=== PATIENT | female | born 1950 | race Caucasian/White ===

== ENCOUNTER 2019-07-02 10:22 | Inpatient (IN) ==
[2019-07-02] MEDS ORDERED: Ibuprofen 800 MG TABLET PO PRN (12:19)
[2019-07-03] MEDS ORDERED: Furosemide 40 MG TABLET PO SCH (09:00)
[2019-07-03] MEDS ORDERED: amLODIPine 5 MG TABLET PO SCH (09:00)
[2019-07-03] MEDS ORDERED: hydroCHLOROthiazide 25 MG TABLET PO SCH (09:00)
[2019-07-03] MEDS: levoFLOXacin 500 MG TABLET PO SCH (09:14)
[2019-07-03] MEDS: Magnesium Oxide 400 MG TABLET PO SCH (09:14)
[2019-07-03] MEDS: Cholecalciferol (D-3) 1,000 UNIT (25MCG) TABLET PO SCH (09:14)
[2019-07-03] MEDS: Aspirin Enteric Coated 81 MG Tablet PO SCH (09:15)
[2019-07-03] MEDS: Psyllium 1 PACKET POWD.PACK PO SCH (09:23)
--- NOTE | 2019-07-03 16:18 | Internal Med History&Physical ---
Date of Encounter: 07/03/19 Time of Encounter: 15:30 Assessment and Plan (1) Perforated sigmoid colon Current visit: No Status: Acute Status post sigmoid resection with colostomy development January 2019 with colostomy takedown June 2019. Follow up as per surgeon orders. (2) HTN (hypertension) Current visit: No Status: Chronic Monitor blood pressure. Qualifiers: Hypertension type: essential hypertension Qualified Code(s): I10 - Essential (primary) hypertension (3) Weakness Current visit: No Status: Acute PT and OT evaluations have been ordered. (4) Diabetes Current visit: No Status: Chronic Hemoglobin A1c was 7.0% on 09/09/2018. Recheck in a.m. Continue Accu-Cheks with SSI. Qualifiers: Diabetes mellitus type: type 2 Diabetes mellitus supervisor long goods insulin use: with alf use Diabetes mellitus complication status: without complication Qualified Code(s): E11.9 - Type 2 diabetes mellitus without complications; Z79.4 - termite treater (current) use of insulin (5) Pneumonia Current visit: No Status: Acute Continue Levaquin through 07/07/2019. Lactobacillus will be added. Qualifiers: Pneumonia type: due to unspecified organism Laterality: left Lung location: lower lobe of lung Qualified Code(s): J18.1 - Lobar pneumonia, unspecified organism (6) Anemia Current visit: Yes Status: Acute Anemia testing will be done in a.m. Qualifiers: Anemia type: unspecified type Qualified Code(s): D64.9 - Anemia, unspecified (7) Low TSH level Current visit: Yes Status: Acute TSH was suppressed at 0.128 on 02/18/2018. Recheck in a.m. (8) Hypokalemia Current visit: No Status: Acute Supplemental potassium has been ordered. Recheck in a.m. Internal Medicine - H&P: HPI Chief complaint: Postop recovery Admitted From: Hospital to Hospital Transfer Plans for Post Hospital Care: Home History of present illness: Ms. Vallecillo is a 69 year old female who was discharged to [facility] swing bed following a June 24 hospitalization for colostomy takedown and bilateral ureteral stent placement. Her postop course was complicated by pneumonia and UTI. She was transitioned from IV Zosyn to oral Levaquin and was discharged [facility] swing bed for rehabilitation therapy prior to returning to independent living at home. She had had sigmoid colon resection 01/10/2019 for perforated sigmoid diverticulitis. The primary anastomosis failed and she underwent exploratory lap with colostomy development 01/14/2019. She states colostomy takedown surgery has been uncomplicated and she is having normal BM per rectum. She has noticed occasional blood streaks in stool but was told this was not unexpected. She denies disorders of her liver gallbladder or exocrine pancreas. Past Med Surg Social Fam HX - Past Medical History Medical history: hyperlipidemia, hypertension Additional medical history: fluid retention. Diverticulitis with perforation Psychiatric history: depression - Past Surgical History Surgical History: cholecystectomy, colectomy, colostomy, ELISABETH/BSO Additional surgical history: polyps and gallbladder removal, partial colon removal - Social History Smoking Status: Never smoker Smokeless Tobacco Status: No Alcohol use: none Drug use: none - Family History Father Living Status: Hx Family Cardiac Disorders: Yes ([place]) Mother Adopted: No Living Status: Hx Family Cardiac Disorders: Yes (mother CHF) Hx Family Respiratory Disorders: No Hx Family Cancer: Yes (breast ca/sister) Hx Family GI Disorders: No Hx Family Endocrine Disorder: Yes (mother father DM) Hx Family Neuromuscular Disorders: No Hx Family Neurologic Disorders: No Hx Family HEENT Disorders: No Hx Family Autoimmune Disorders: No Internal Medicine - H&P: Meds Cholecalciferol (Vitamin D3) [Vitamin D3] 2,000 unit PO DAILY 01/24/17 [History] Furosemide [Lasix] 40 mg PO QAM 01/24/17 [History] Psyllium Husk [Metamucil] 0.4 gm PO DAILY 07/15/18 [History] Atorvastatin [Lipitor] 40 mg PO HS 30 Days #30 tablet 07/17/18 [Rx] hydroCHLOROthiazide [Hydrochlorothiazide] 12.5 mg PO DAILY 30 Days #30 tablet 07/17/18 [Rx] Amlodipine Besylate 10 mg PO DAILY 01/11/19 [History] Aspirin [Lo-Dose Aspirin EC] 81 mg PO DAILY 01/11/19 [History] Metoprolol Tartrate 50 mg PO DAILY 01/11/19 [History] Potassium Chloride [K-Tab ER] 20 meq PO BID 01/11/19 [History] Magnesium 250 mg PO Q48H 06/24/19 [History] Acetaminophen [Tylenol] 650 mg PO Q6HR PRN tablet 07/02/19 [Rx] Docusate [Colace] 100 mg PO BID capsule 07/02/19 [Rx] Ibuprofen [Motrin] 800 mg PO Q8HR PRN tablet 07/02/19 [Rx] Polyethylene Glycol 3350 [MiraLAX] 17 gm PO DAILY powd.pack 07/02/19 [Rx] levoFLOXacin [Levaquin] 750 mg PO DAILY 5 Days tablet 07/02/19 [Rx] Allergy/AdvReac Type Severity Reaction Status Date / Time No Known Allergies Allergy Verified 06/08/19 10:31 All Systems PM: A 10-system review of systems was performed and is negative for pertinent findings except as documented above in the HPI. Review of systems: Gen.: Her weight has decreased from 118.8 kg on 01/21/2019 to 97.5 kg on admission now. Cardiovascular: She has history of hypertension but denies [place] heart failure angina DVT or pulmonary embolus Respiratory: She is a lifelong nonsmoker and denies chronic lung disease. GI: As per history of present illness : She denies hematuria dysuria or kidney stones Neurologic: She denies large distribution strokes or seizures. Endocrine: She has been told she is borderline diabetic. She denies known thyroid disease. TSH was suppressed at 0.128 on 02/18/2018. She has history of hyperlipidemia. Hematology/oncology: She was unaware she had anemia. She denies internal malignancies or other blood disorders. Psychiatric: She has depression but denies anxiety or other mental health issues [place] skeletal: She has DJD but denies gout or other bone joint or muscle disorders. - Constitutional Vitals: Temp Pulse Resp BP Pulse Ox 98.0 F 89 16 119/65 94 07/03/19 15:05 07/03/19 15:05 07/03/19 15:05 07/03/19 15:05 07/03/19 15:05 Exam: Gen.: She is a well-developed well-nourished female resting comfortably on the side of bed who appears in no acute distress HEENT: Head is atraumatic and normocephalic. Eyes: EOMI. There is no scleral icterus. Mouth: Mucosa is moist. Neck: Supple and nontender. There is no thyromegaly or adenopathy noted. Heart: Regular without murmurs gallops or ectopics Lungs: No wheezes or crackles are heard. Abdomen: Soft and nontender. No masses or guarding are noted. Extremities: She has trace edema of the lower legs and dorsum of the feet bilaterally. Dorsalis pedis and posterior tibial pulses are trace to 1+ palpable. Her feet are warm to touch. She has minimal DJD changes of her hands. Neurologic: Mental status: She is talkative and a good historian. Cranial nerves: Smile is symmetric. Forehead wrinkles bilaterally. Tongue protrudes midline. EOMI. Motor: There is no pronator drift. Cerebellar: Finger to nose is intact bilaterally. Skin: Warm and dry
[2019-07-03] MEDS: Lactobacillus 1 EACH CAP.SPRINK PO SCH (21:54)
[2019-07-04 07:31] LABS: Basophils # 0.1 K/mcL (0.0-0.2); Basophils % 0.5 %; Eosinophils # 0.7 K/mcL (0.0-0.6); Eosinophils % 6.3 %; Hematocrit 32.7 % (35.3-44.9); Immature Granulocytes % 1.7 % (0-4); Lymphocytes # 2.3 K/mcL (0.6-4.6); Mean Corpuscular HGB Conc 33.6 g/dL (31.6-35.5); Mean Corpuscular Hemoglobin 28.4 pg (28.0-33.3); Mean Corpuscular Volume 84.3 fL (83.0-100.0); Mean Platelet Volume 10.2 fL (9.4-12.4); Monocytes # 1.3 K/mcL (0.0-1.3); Monocytes % 12.2 %; Neutrophils # 6.1 K/mcL (1.6-8.9); Platelet Count 365 K/mcL (140-400); Red Blood Count 3.88 M/mcL (3.82-4.97); Red Cell Distribution Width 15.2 % (11.5-14.5); Segmented Neutrophils % 57.3 %; White Blood Count 10.6 K/mcL (4.3-11.1)
[2019-07-04 07:55] LABS: Alanine Aminotransferase 13 Units/L (7-52); Albumin/Globulin Ratio 1.1 (1.1-2.2); Alkaline Phosphatase 59 Units/L (34-104); Aspartate Amino Transferase 19 Units/L (13-39); BUN/Creatinine Ratio 13 (6-26); Blood Urea Nitrogen 9 mg/dL (8-23); Calcium 8.4 mg/dL (8.6-10.3); Carbon Dioxide 27 mEq/L (23-29); Chloride 103 mEq/L (98-107); Globulin 2.7 g/dL (2.4-3.5); Glucose 107 mg/dL (70-105); Osmolality,Calculated 283 (280-300); Potassium 3.6 mEq/L (3.5-5.1); Sodium 137 mEq/L (136-145); Total Protein 5.7 g/dL (6.4-8.9); eGFR For African Americans > 60 (> 60); eGFR For Non-African Americans > 60 (> 60)
[2019-07-04] MEDS: Lactobacillus 1 EACH CAP.SPRINK PO SCH ×2 (09:07→20:16)
[2019-07-04] MEDS: levoFLOXacin 500 MG TABLET PO SCH (09:07)
[2019-07-04] MEDS: Cholecalciferol (D-3) 1,000 UNIT (25MCG) TABLET PO SCH (09:08)
[2019-07-04] MEDS: Aspirin Enteric Coated 81 MG Tablet PO SCH (09:08)
[2019-07-04] MEDS: Psyllium 1 PACKET POWD.PACK PO SCH (09:11)
[2019-07-04 09:30] LABS: % Iron Saturation 14 % (15-50); Iron 37 mcg/dL (50-170); Transferrin 185 mg/dL (203-362)
[2019-07-04 09:47] LABS: Estimated Average Glucose 128 mg/dl
[2019-07-04 09:49] LABS: Ferritin 191 ng/mL (10-120)
[2019-07-04 09:54] LABS: Folate 15.4 ng/mL (3.0-16.0)
--- NOTE | 2019-07-04 15:39 | Internal Med Progress Note ---
Date of Encounter: 07/04/19 Time of Encounter: 15:30 - Assessment and plan (1) Perforated sigmoid colon Current Visit: No Status: Acute Assessment and plan: July 04. Status post sigmoid resection with colostomy development January 2019 with colostomy takedown June 2019. Follow up as per surgeon orders. (2) HTN (hypertension) Current Visit: No Status: Chronic Assessment and plan: July 04. Remain off Lasix, HCTZ, and amlodipine. Monitor blood pressure. Qualifiers: Hypertension type: essential hypertension Qualified Code(s): I10 - Essential (primary) hypertension (3) Weakness Current Visit: No Status: Acute Assessment and plan: July 04. Continue PT/OT intervention. (4) Diabetes Current Visit: No Status: Chronic Assessment and plan: July 04. Hemoglobin A1c acceptable at 6.1%. Qualifiers: Diabetes mellitus type: type 2 Diabetes mellitus custodial insulin use: with long term care administrator use Diabetes mellitus complication status: without complication Qualified Code(s): E11.9 - Type 2 diabetes mellitus without complications; Z79.4 - terminal make up operator (current) use of insulin (5) Pneumonia Current Visit: No Status: Acute Assessment and plan: July 04. Continue Levaquin and lactobacillus through 07/07/2019. Qualifiers: Pneumonia type: due to unspecified organism Laterality: left Lung location: lower lobe of lung Qualified Code(s): J18.1 - Lobar pneumonia, unspecified organism (6) Anemia Current Visit: Yes Status: Acute Assessment and plan: July 04. Anemia testing showed iron 37, transferrin saturation 14%, transferrin 185, ferritin 191, B12 343, and folate 15.4. Hemoglobin improved to 11.0. Continue to monitor periodically. Qualifiers: Anemia type: unspecified type Qualified Code(s): D64.9 - Anemia, unspecified (7) Low TSH level Current Visit: Yes Status: Acute Assessment and plan: July 04. TSH WNL at 1.050. (8) Hypokalemia Current Visit: No Status: Acute Assessment and plan: July 04. Potassium WNL at 3.6. Continue to monitor. - Subjective Interval history: July 04. She has no new complaints. - Constitutional Vitals: Temp Pulse Resp BP Pulse Ox 97.5 F L 86 15 107/71 97 07/04/19 06:34 07/04/19 06:34 07/04/19 06:34 07/04/19 06:34 07/04/19 06:34 Exam: She is resting comfortably in bed and appears in no acute distress. Her affect is bright and cheerful. I reviewed her medications and lab results. Internal Medicine: Result - Labs CBC & Chem 7: 07/04/19 06:50 07/04/19 06:50 Labs: Short CBC 07/04/19 Range/Units 06:50 WBC 10.6 (4.3-11.1) K/mcL Hgb 11.0 L (11.5-15.4) g/dL Hct 32.7 L (35.3-44.9) % Plt Count 365 (140-400) K/mcL Neutrophils # 6.1 (1.6-8.9) K/mcL BMP 07/04/19 06:50 Sodium 137 Potassium 3.6 Chloride 103 Carbon Dioxide 27 BUN 9 Creatinine 0.69 Glucose 107 H Calcium 8.4 L Liver Function 07/04/19 Range/Units 06:50 Total Bilirubin 1.0 (0.3-1.0) mg/dL AST 19 (13-39) Units/L ALT 13 (7-52) Units/L Alkaline Phosphatase 59 (34-104) Units/L Albumin 3.0 L (3.5-5.7) g/dL Consult Discharge Plan - Plan Referrals: Rey Bowman Jr, MD [Primary Care Provider] - 1 week
[2019-07-05] MEDS: Aspirin Enteric Coated 81 MG Tablet PO SCH (09:26)
[2019-07-05] MEDS: Lactobacillus 1 EACH CAP.SPRINK PO SCH ×2 (09:27→19:26)
[2019-07-05] MEDS: levoFLOXacin 500 MG TABLET PO SCH (09:27)
[2019-07-05] MEDS: Magnesium Oxide 400 MG TABLET PO SCH (09:28)
[2019-07-05] MEDS: Cholecalciferol (D-3) 1,000 UNIT (25MCG) TABLET PO SCH (09:28)
[2019-07-05] MEDS: Psyllium 1 PACKET POWD.PACK PO SCH (09:30)
[2019-07-05] MEDS: Acetaminophen 325 MG TABLET PO PRN (14:18)
[2019-07-06] MEDS: Lactobacillus 1 EACH CAP.SPRINK PO SCH ×2 (09:31→20:36)
[2019-07-06] MEDS: Cholecalciferol (D-3) 1,000 UNIT (25MCG) TABLET PO SCH (09:31)
[2019-07-06] MEDS: levoFLOXacin 500 MG TABLET PO SCH (09:31)
[2019-07-06] MEDS: Aspirin Enteric Coated 81 MG Tablet PO SCH (09:31)
[2019-07-06] MEDS: Psyllium 1 PACKET POWD.PACK PO SCH (09:32)
--- NOTE | 2019-07-06 12:22 | Internal Med Progress Note ---
Date of Encounter: 07/06/19 Time of Encounter: 12:15 - Assessment and plan (1) Perforated sigmoid colon Current Visit: No Status: Acute Assessment and plan: July 04. Status post sigmoid resection with colostomy development January 2019 with colostomy takedown June 2019. Follow up as per surgeon orders. (2) HTN (hypertension) Current Visit: No Status: Chronic Assessment and plan: July 04. Remain off Lasix, HCTZ, and amlodipine. Monitor blood pressure. July 06. Blood pressure remains satisfactory off Lasix, HCTZ, and amlodipine. Continue metoprolol 25 mg Qualifiers: Hypertension type: essential hypertension Qualified Code(s): I10 - Essential (primary) hypertension (3) Weakness Current Visit: No Status: Acute Assessment and plan: July 04. Continue PT/OT intervention. (4) Diabetes Current Visit: No Status: Chronic Assessment and plan: July 04. Hemoglobin A1c acceptable at 6.1%. Qualifiers: Diabetes mellitus type: type 2 Diabetes mellitus fpc insulin use: with exterminator helper termite use Diabetes mellitus complication status: without complication Qualified Code(s): E11.9 - Type 2 diabetes mellitus without complications; Z79.4 - exterminator helper (current) use of insulin (5) Pneumonia Current Visit: No Status: Acute Assessment and plan: July 04. Continue Levaquin and lactobacillus through 07/07/2019. Qualifiers: Pneumonia type: due to unspecified organism Laterality: left Lung location: lower lobe of lung Qualified Code(s): J18.1 - Lobar pneumonia, unspecified organism (6) Anemia Current Visit: Yes Status: Acute Assessment and plan: July 04. Anemia testing showed iron 37, transferrin saturation 14%, transferrin 185, ferritin 191, B12 343, and folate 15.4. Hemoglobin improved to 11.0. Continue to monitor periodically. July 06. Recheck labs in a.m. Qualifiers: Anemia type: unspecified type Qualified Code(s): D64.9 - Anemia, unspecified (7) Low TSH level Current Visit: Yes Status: Acute Assessment and plan: July 04. TSH WNL at 1.050. (8) Hypokalemia Current Visit: No Status: Acute Assessment and plan: July 04. Potassium WNL at 3.6. Continue to monitor. July 06. Recheck labs in a.m. - Subjective Interval history: July 04. She has no new complaints. July 06. She has no new complaints and feels stronger. - Constitutional Vitals: Temp Pulse Resp BP Pulse Ox 98.1 F 83 16 130/67 96 07/06/19 06:41 07/06/19 06:41 07/06/19 06:41 07/06/19 06:41 07/06/19 06:41 Exam: She is resting comfortably in bed and appears in no acute distress. Her affect is bright and cheerful. Extremities show no pitting edema. I reviewed her medications labs and vitals. Internal Medicine: Result - Labs CBC & Chem 7: 07/04/19 06:50 07/04/19 06:50 Consult Discharge Plan - Plan Referrals: Rey Bowman Jr, MD [Primary Care Provider] - 1 week
[2019-07-07 06:41] LABS: Basophils # 0.1 K/mcL (0.0-0.2); Basophils % 0.5 %; Eosinophils # 0.5 K/mcL (0.0-0.6); Eosinophils % 3.9 %; Hematocrit 30.6 % (35.3-44.9); Hemoglobin 10.1 g/dL (11.5-15.4); Immature Granulocytes % 0.8 % (0-4); Lymphocytes % 24.5 %; Mean Corpuscular Hemoglobin 28.4 pg (28.0-33.3); Mean Platelet Volume 9.9 fL (9.4-12.4); Monocytes # 1.1 K/mcL (0.0-1.3); Monocytes % 9.4 %; Neutrophils # 7.4 K/mcL (1.6-8.9); Platelet Count 440 K/mcL (140-400); Red Blood Count 3.56 M/mcL (3.82-4.97); Red Cell Distribution Width 15.3 % (11.5-14.5); Segmented Neutrophils % 60.9 %; White Blood Count 12.1 K/mcL (4.3-11.1)
[2019-07-07 06:56] LABS: BUN/Creatinine Ratio 12 (6-26); Blood Urea Nitrogen 9 mg/dL (8-23); Calcium 8.4 mg/dL (8.6-10.3); Carbon Dioxide 27 mEq/L (23-29); Chloride 107 mEq/L (98-107); Glucose 104 mg/dL (70-105); Osmolality,Calculated 289 (280-300); Potassium 3.6 mEq/L (3.5-5.1); Sodium 140 mEq/L (136-145); eGFR For African Americans > 60 (> 60); eGFR For Non-African Americans > 60 (> 60)
[2019-07-07] MEDS: Psyllium 1 PACKET POWD.PACK PO SCH (09:22)
[2019-07-07] MEDS: levoFLOXacin 500 MG TABLET PO SCH (09:23)
[2019-07-07] MEDS: Magnesium Oxide 400 MG TABLET PO SCH (09:23)
[2019-07-07] MEDS: Lactobacillus 1 EACH CAP.SPRINK PO SCH ×2 (09:23→20:50)
[2019-07-07] MEDS: Cholecalciferol (D-3) 1,000 UNIT (25MCG) TABLET PO SCH (09:23)
[2019-07-07] MEDS: Aspirin Enteric Coated 81 MG Tablet PO SCH (09:23)
--- NOTE | 2019-07-07 17:27 | Internal Med Progress Note ---
Date of Encounter: 07/07/19 Time of Encounter: 17:10 - Assessment and plan (1) Perforated sigmoid colon Current Visit: No Status: Acute Assessment and plan: July 04. Status post sigmoid resection with colostomy development January 2019 with colostomy takedown June 2019. Follow up as per surgeon orders. July 07. 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 Her surgeon ordered quantitative measurement of the drainage with treatment plan depending on volume output. She will be seen at [facility] wound clinic 07/13/2019. (2) HTN (hypertension) Current Visit: No Status: Chronic Assessment and plan: July 04. Remain off Lasix, HCTZ, and amlodipine. Monitor blood pressure. July 06. Blood pressure remains satisfactory off Lasix, HCTZ, and amlodipine. Continue metoprolol 25 mg July 07. Blood pressure stable. Continue present Rx. Qualifiers: Hypertension type: essential hypertension Qualified Code(s): I10 - Essential (primary) hypertension (3) Weakness Current Visit: No Status: Acute Assessment and plan: July 04. Continue PT/OT intervention. (4) Diabetes Current Visit: No Status: Chronic Assessment and plan: July 04. Hemoglobin A1c acceptable at 6.1%. Qualifiers: Diabetes mellitus type: type 2 Diabetes mellitus terminal supervisor insulin use: with terminal supervisor use Diabetes mellitus complication status: without complication Qualified Code(s): E11.9 - Type 2 diabetes mellitus without complications; Z79.4 - alf (current) use of insulin (5) Pneumonia Current Visit: No Status: Acute Assessment and plan: July 04. Continue Levaquin and lactobacillus through 07/07/2019. Qualifiers: Pneumonia type: due to unspecified organism Laterality: left Lung location: lower lobe of lung Qualified Code(s): J18.1 - Lobar pneumonia, un specified organism (6) Anemia Current Visit: Yes Status: Acute Assessment and plan: July 04. Anemia testing showed iron 37, transferrin saturation 14%, transferrin 185, ferritin 191, B12 343, and folate 15.4. Hemoglobin improved to 11.0. Continue to monitor periodically. July 06. Recheck labs in a.m. July 07. Hemoglobin decreased to 10.1. Recheck labs in a.m. Qualifiers: Anemia type: unspecified type Qualified Code(s): D64.9 - Anemia, unspecified (7) Low TSH level Current Visit: Yes Status: Acute Assessment and plan: July 04. TSH WNL at 1.050. (8) Hypokalemia Current Visit: No Status: Acute Assessment and plan: July 04. Potassium WNL at 3.6. Continue to monitor. July 06. Recheck labs in a.m. July 07. Potassium WNL at 3.6. Continue to monitor. - Subjective Interval history: July 04. She has no new complaints. July 06. She has no new complaints and feels stronger. July 07. She was noted by nursing on nightshift last evening to have bile-appearing drainage from abdominal wall incision. Abdominal/pelvis CT scan was done. The CT was reviewed by her surgeon a few hours later and he requested she be transported to [facility] for an acute office visit. After examination a repeat abdominal/pelvis CT was ordered with contrast. The patient returned to swing bed a short time ago but expressed dissatisfaction with not fully understanding what her diagnosis was and uncertainty about longer-term treatment plan and recovery prognosis. - Constitutional Vitals: Temp Pulse Resp BP Pulse Ox 97.9 F 79 16 125/81 97 07/07/19 06:43 07/07/19 06:43 07/07/19 06:43 07/07/19 06:43 07/07/19 06:43 Exam: She is resting in a chair at bedside appears in no acute distress. Her affect is bright and cheerful. I reviewed her medications, lab results, and CT reports. I spoke with [facility] on-call surgeon and with Dr. Huang. Internal Medicine: Result - Labs CBC & Chem 7: 07/07/19 06:19 07/07/19 06:19 Labs: Short CBC 07/07/19 Range/Units 06:19 WBC 12.1 H (4.3-11.1) K/mcL Hgb 10.1 L (11.5-15.4) g/dL Hct 30.6 L (35.3-44.9) % Plt Count 440 H (140-400) K/mcL Neutrophils # 7.4 (1.6-8.9) K/mcL BMP 07/07/19 06:19 Sodium 140 Potassium 3.6 Chloride 107 Carbon Dioxide 27 BUN 9 Creatinine 0.76 Glucose 104 Calcium 8.4 L - Impressions Impressions Abdomen/Pelvis CT 07/07/19 00:52 IMPRESSION: There is a tract of soft tissue seen superior to the umbilicus along the midline, containing gas, and there is apparent communication of that with small bowel within the mid upper abdomen anteriorly. That is a potential etiology of the drainage detected clinically. An additional gas-filled tract is seen within the left lower quadrant abdominal wall, which extends to the skin surface, presumably representing a previous colostomy. That particular tract does not appear to extend into the peritoneal cavity. Within the lower pelvic wall, there is a thick walled fluid collection measuring 5.3 cm, etiology unclear, which may represent seroma or abscess. Again there is small bowel immediately adjacent to that, but definite communication with the small bowel is not seen. Anastomotic staple line is seen within the sigmoid colon. No surrounding soft tissue gas or fluid is identified, but again, evaluation is limited by the intravenous and especially oral contrast. D/ / Kali Jerez MD / Kali Jerez MD Interpreting Provider: Kali Jerez MD Consult Discharge Plan - Plan Referrals: Rey Bowman Jr, MD [Primary Care Provider] - 1 week
[2019-07-08] MEDS: Cholecalciferol (D-3) 1,000 UNIT (25MCG) TABLET PO SCH (08:24)
[2019-07-08] MEDS: levoFLOXacin 500 MG TABLET PO SCH (08:24)
[2019-07-08] MEDS: Lactobacillus 1 EACH CAP.SPRINK PO SCH (08:24)
[2019-07-08] MEDS: Aspirin Enteric Coated 81 MG Tablet PO SCH (08:25)
[2019-07-08] MEDS: Psyllium 1 PACKET POWD.PACK PO SCH (08:25)
[2019-07-08 08:37] LABS: Basophils # 0.1 K/mcL (0.0-0.2); Basophils % 0.7 %; Eosinophils # 0.4 K/mcL (0.0-0.6); Eosinophils % 3.7 %; Hematocrit 32.9 % (35.3-44.9); Hemoglobin 10.5 g/dL (11.5-15.4); Immature Granulocytes % 0.8 % (0-4); Lymphocytes # 2.5 K/mcL (0.6-4.6); Lymphocytes % 22.8 %; Mean Corpuscular HGB Conc 31.9 g/dL (31.6-35.5); Mean Corpuscular Hemoglobin 27.7 pg (28.0-33.3); Mean Corpuscular Volume 86.8 fL (83.0-100.0); Mean Platelet Volume 10.7 fL (9.4-12.4); Monocytes # 1.1 K/mcL (0.0-1.3); Monocytes % 9.7 %; Neutrophils # 6.8 K/mcL (1.6-8.9); Platelet Count 454 K/mcL (140-400); Red Blood Count 3.79 M/mcL (3.82-4.97); Red Cell Distribution Width 15.5 % (11.5-14.5); Segmented Neutrophils % 62.3 %; White Blood Count 10.9 K/mcL (4.3-11.1)
--- NOTE | 2019-07-08 19:08 | Internal Med Progress Note ---
Date of Encounter: 07/08/19 Time of Encounter: 18:55 - Assessment and plan (1) Perforated sigmoid colon Current Visit: No Status: Acute Assessment and plan: July 04. Status post sigmoid resection with colostomy development January 2019 with colostomy takedown June 2019. Follow up as per surgeon orders. July 07. 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 Her surgeon ordered quantitative measurement of the drainage with treatment plan depending on volume output. She will be seen at [facility] wound clinic 07/13/2019. July 08. Nursing reports total fistula output today has been approximately 450 mL. Continue to monitor. (2) HTN (hypertension) Current Visit: No Status: Chronic Assessment and plan: July 04. Remain off Lasix, HCTZ, and amlodipine. Monitor blood pressure. July 06. Blood pressure remains satisfactory off Lasix, HCTZ, and amlodipine. Continue metoprolol 25 mg July 07. Blood pressure stable. Continue present Rx. Qualifiers: Hypertension type: essential hypertension Qualified Code(s): I10 - Essential (primary) hypertension (3) Weakness Current Visit: No Status: Acute Assessment and plan: July 04. Continue PT/OT intervention. (4) Diabetes Current Visit: No Status: Chronic Assessment and plan: July 04. Hemoglobin A1c acceptable at 6.1%. Qualifiers: Diabetes mellitus type: type 2 Diabetes mellitus tank terminal gauger insulin use: with tank terminal gauger use Diabetes mellitus complication status: without complication Qualified Code(s): E11.9 - Type 2 diabetes mellitus without complications; Z79.4 - alf (current) use of insulin (5) Pneumonia Current Visit: No Status: Acute Assessment and plan: July 04. Continue Levaquin and lactobacillus through 07/07/2019. Qualifiers: Pneumonia type: due to unspecified organism Laterality: left Lung locat ion: lower lobe of lung Qualified Code(s): J18.1 - Lobar pneumonia, unspecified organism (6) Anemia Current Visit: Yes Status: Acute Assessment and plan: July 04. Anemia testing showed iron 37, transferrin saturation 14%, transferrin 185, ferritin 191, B12 343, and folate 15.4. Hemoglobin improved to 11.0. Continue to monitor periodically. July 06. Recheck labs in a.m. July 07. Hemoglobin decreased to 10.1. Recheck labs in a.m. July 08. Hemoglobin 10.5 today. Continue to monitor. Qualifiers: Anemia type: unspecified type Qualified Code(s): D64.9 - Anemia, unspecified (7) Low TSH level Current Visit: Yes Status: Acute Assessment and plan: July 04. TSH WNL at 1.050. (8) Hypokalemia Current Visit: No Status: Acute Assessment and plan: July 04. Potassium WNL at 3.6. Continue to monitor. July 06. Recheck labs in a.m. July 07. Potassium WNL at 3.6. Continue to monitor. July 08. Recheck labs in a.m. - Subjective Interval history: July 04. She has no new complaints. July 06. She has no new complaints and feels stronger. July 07. She was noted by nursing on nightshift last evening to have bile-appearing drainage from abdominal wall incision. Abdominal/pelvis CT scan was done. The CT was reviewed by her surgeon a few hours later and he requested she be transported to [facility] for an acute office visit. After examination a repeat abdominal/pelvis CT was ordered with contrast. The patient returned to swing bed a short time ago but expressed dissatisfaction with not fully understanding what her diagnosis was and uncertainty about longer-term treatment plan and recovery prognosis. July 08. She has no new complaints. - Constitutional Vitals: Temp Pulse Resp BP Pulse Ox 98 F 94 15 120/64 97 07/08/19 19:02 07/08/19 19:02 07/08/19 19:02 07/08/19 19:02 07/08/19 19:02 Exam: She is resting comfortably in a chair at bedside and appears in no acute distress. Her affect is bright and cheerful. I reviewed her medications and lab results. Internal Medicine: Result - Labs CBC & Chem 7: 07/08/19 08:04 07/07/19 06:19 Labs: Short CBC 07/08/19 Range/Units 08:04 WBC 10.9 (4.3-11.1) K/mcL Hgb 10.5 L (11.5-15.4) g/dL Hct 32.9 L (35.3-44.9) % Plt Count 454 H (140-400) K/mcL Neutrophils # 6.8 (1.6-8.9) K/mcL Consult Discharge Plan - Plan Referrals: Rey Bowman Jr, MD [Primary Care Provider] - 1 week
[2019-07-08] MEDS: Acetaminophen 325 MG TABLET PO PRN (21:40)
[2019-07-09 05:20] LABS: Basophils # 0.1 K/mcL (0.0-0.2); Basophils % 0.8 %; Eosinophils # 0.5 K/mcL (0.0-0.6); Eosinophils % 4.1 %; Hematocrit 31.6 % (35.3-44.9); Hemoglobin 10.3 g/dL (11.5-15.4); Immature Granulocytes % 0.6 % (0-4); Lymphocytes # 3.5 K/mcL (0.6-4.6); Lymphocytes % 29.6 %; Mean Corpuscular HGB Conc 32.6 g/dL (31.6-35.5); Mean Corpuscular Volume 85.9 fL (83.0-100.0); Monocytes # 1.1 K/mcL (0.0-1.3); Monocytes % 9.2 %; Neutrophils # 6.6 K/mcL (1.6-8.9); Platelet Count 497 K/mcL (140-400); Red Blood Count 3.68 M/mcL (3.82-4.97); Red Cell Distribution Width 15.2 % (11.5-14.5); Segmented Neutrophils % 55.7 %; White Blood Count 11.8 K/mcL (4.3-11.1)
[2019-07-09 05:45] LABS: Magnesium 2.2 mg/dL (1.6-2.6); Phosphorous 5.2 mg/dL (2.7-4.5)
[2019-07-09 05:46] LABS: Alanine Aminotransferase 14 Units/L (7-52); Albumin 3.2 g/dL (3.5-5.7); Albumin/Globulin Ratio 1.1 (1.1-2.2); Alkaline Phosphatase 50 Units/L (34-104); Aspartate Amino Transferase 19 Units/L (13-39); BUN/Creatinine Ratio 16 (6-26); Bilirubin,Total 0.7 mg/dL (0.3-1.0); Blood Urea Nitrogen 13 mg/dL (8-23); Calcium 8.8 mg/dL (8.6-10.3); Carbon Dioxide 26 mEq/L (23-29); Chloride 106 mEq/L (98-107); Globulin 2.9 g/dL (2.4-3.5); Glucose 99 mg/dL (70-105); Osmolality,Calculated 290 (280-300); Potassium 3.6 mEq/L (3.5-5.1); Sodium 140 mEq/L (136-145); Total Protein 6.1 g/dL (6.4-8.9); eGFR For African Americans > 60 (> 60); eGFR For Non-African Americans > 60 (> 60)
[2019-07-09 06:47] VITALS: BP 121/70
[2019-07-09] MEDS: Aspirin Enteric Coated 81 MG Tablet PO SCH (09:53)
[2019-07-09] MEDS: Magnesium Oxide 400 MG TABLET PO SCH (09:53)
[2019-07-09] MEDS: Psyllium 1 PACKET POWD.PACK PO SCH (09:53)
[2019-07-09] MEDS: Cholecalciferol (D-3) 1,000 UNIT (25MCG) TABLET PO SCH (09:53)
--- NOTE | 2019-07-09 13:15 | Discharge Summary ---
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 (2) Perforated sigmoid colon Priority: Secondary Status: Acute (3) HTN (hypertension) Priority: Secondary Status: Chronic Qualifiers: Hypertension type: essential hypertension Qualified Code(s): I10 - Essential (primary) hypertension (4) Weakness Priority: Secondary Status: Acute (5) Diabetes Priority: Secondary Status: Chronic Qualifiers: Diabetes mellitus type: type 2 Diabetes mellitus chcf insulin use: with chcf use Diabetes mellitus complication status: without complication Qualified Code(s): E11.9 - Type 2 diabetes mellitus without complications; Z79.4 - skilled nursing (current) use of insulin (6) Pneumonia Priority: Secondary Status: Acute Qualifiers: Pneumonia type: due to unspecified organism Laterality: left Lung location: lower lobe of lung Qualified Code(s): J18.1 - Lobar pneumonia, unspecified organism (7) Anemia Priority: Secondary Status: Acute Qualifiers: Anemia type: unspecified type Qualified Code(s): D64.9 - Anemia, unspe cified (8) Low TSH level Priority: Secondary Status: Resolved (9) Hypokalemia Priority: Secondary Status: Resolved Hospital course: Ms. Vallecillo is a 69 year old female who was discharged to [facility] swing bed following a June 24 hospitalization for colostomy takedown and bilateral ureteral stent placement. Her postop course was complicated by pneumonia and UTI. She was transitioned from IV Zosyn to oral Levaquin and was discharged [facility] swing bed for rehabilitation therapy prior to returning to independent living at home. I saw her on July 03 and performed a swing bed history and physical. On July 07 nursing noted there was increased drainage from an abdominal incision. Abdominal pelvis CT showed likely enterocutaneous fistula. Contact was made with her surgeon who arranged for a same day visit at his office. Repeat abdominal pelvis CT with contrast confirmed enterocutaneous fistula. She returned to [facility] swing bed and a collection device was placed over the fistula to quantitate output. Output exceeded 450 mL the first day. Contact was again made with the surgeon who recommended direct admission to [facility] for ongoing care needs. - Time Spent with Patient Total time spent providing and/or coordinating discharge services: - Discharge Medications Prescriptions: No Action Furosemide [Lasix] 40 mg PO QAM Cholecalciferol (Vitamin D3) [Vitamin D3] 2,000 unit PO DAILY Psyllium Husk [Metamucil] 0.4 gm PO DAILY Atorvastatin [Lipitor] 40 mg PO HS 30 Days #30 tablet hydroCHLOROthiazide [Hydrochlorothiazide] 12.5 mg PO DAILY 30 Days #30 tablet Amlodipine Besylate 10 mg PO DAILY Aspirin [Lo-Dose Aspirin EC] 81 mg PO DAILY Metoprolol Tartrate 50 mg PO DAILY Potassium Chloride [K-Tab ER] 20 meq PO BID Magnesium 250 mg PO Q48H Docusate [Colace] 100 mg PO BID capsule levoFLOXacin [Levaquin] 750 mg PO DAILY 5 Days tablet Polyethylene Glycol 3350 [MiraLAX] 17 gm PO DAILY powd.pack Ibuprofen [Motrin] 800 mg PO Q8HR PRN tablet PRN Reason: Moderate Pain Acetaminophen [Tylenol] 650 mg PO Q6HR PRN tablet PRN Reason: Mild Pain Home Medications: Cholecalciferol (Vitamin D3) [Vitamin D3] 2,000 unit PO DAILY 01/24/17 [History] Furosemide [Lasix] 40 mg PO QAM 01/24/17 [History] Psyllium Husk [Metamucil] 0.4 gm PO DAILY 07/15/18 [History] Atorvastatin [Lipitor] 40 mg PO HS 30 Days #30 tablet 07/17/18 [Rx] hydroCHLOROthiazide [Hydrochlorothiazide] 12.5 mg PO DAILY 30 Days #30 tablet 07/17/18 [Rx] Amlodipine Besylate 10 mg PO DAILY 01/11/19 [History] Aspirin [Lo-Dose Aspirin EC] 81 mg PO DAILY 01/11/19 [History] Metoprolol Tartrate 50 mg PO DAILY 01/11/19 [History] Potassium Chloride [K-Tab ER] 20 meq PO BID 01/11/19 [History] Magnesium 250 mg PO Q48H 06/24/19 [History] Acetaminophen [Tylenol] 650 mg PO Q6HR PRN tablet 07/02/19 [Rx] Docusate [Colace] 100 mg PO BID capsule 07/02/19 [Rx] Ibuprofen [Motrin] 800 mg PO Q8HR PRN tablet 07/02/19 [Rx] Polyethylene Glycol 3350 [MiraLAX] 17 gm PO DAILY powd.pack 07/02/19 [Rx] levoFLOXacin [Levaquin] 750 mg PO DAILY 5 Days tablet 07/02/19 [Rx] Allergies/Adverse Reactions: Allergy/AdvReac Type Severity Reaction Status Date / Time No Known Allergies Allergy Verified 06/08/19 10:31 Date of admission: 07/02/19 13:51 Primary care physician: Rey Bowman Jr, MD Consults: 07/02/19 11:58 Consult to Occupational Therapy [CONS] Routine Comment: Evaluate, develop and implement POC Reason for Consult: Evaluate, develop and implement POC Does patient have active BEDREST order?: No Is patient medically & hemodynamically stable?: Yes Patient assessed for mobility or mobilized this visit?: No Consult to Physical Therapy [CONS] Routine Comment: Evaluate, develop and implement POC Reason for Consult: Evaluate, develop and implement POC Does patient have active BEDREST order?: No Is patient medically & hemodynamically stable?: Yes Patient assessed for mobility or mobilized this visit?: No 07/02/19 14:10 Consult to Nutrition [CONS] Routine Comment: Consulting Provider: NUTRITION Reason for Dietary Consult: PO Supplementation Consult to Consumer Loan Specialist [CONS] Routine Reason for SW Consult: Swing bed - Constitutional Vitals: Temp Pulse Resp BP Pulse Ox 98.0 F 84 18 121/70 95 07/09/19 06:38 07/09/19 06:38 07/09/19 06:38 07/09/19 06:38 07/09/19 06:38 - Patient Status Disposition: Transfer Other - Discharge Instructions
== END 2019-07-09 14:20 | disposition other institution (70) | DRG 393 ==
LOC: INPPIK 13:51
PROVIDERS: ADMIT Internal Medicine; ATTEND Internal Medicine